=== PATIENT | female | born 1960 | race Caucasian/White ===

== ENCOUNTER → 2016-09-24 | Outpatient (CLI) | payer BC ==
[~2016-09-24] MED LIST: ALEVE 220MG220 MG PO
== END ==
LOC: MC.RAD 16:35
DX: Z12.31 Encounter for screening mammogram for malignant neoplasm of breast (principal)

== ENCOUNTER → 2017-03-18 | Outpatient (REF) | LOC: WSOH 08:15 | DX: Z02.89 Encounter for other administrative examinations (principal) ==

== ENCOUNTER 2018-07-17 07:05 | Day surgery (SDC) | payer BC ==
[~2018-07-17] VITALS: Ht 165.1 cm; Wt 57.8 kg
[2018-07-17 07:25] VITALS: BP 108/80; PULSE 75; TEMP 97.6
[2018-07-17] MEDS ORDERED: TEMOVATE0.052 TOP (07:25)
[2018-07-17 08:23] VITALS: BP 108/80; PULSE 63; TEMP 98.2
[2018-07-17 08:40] VITALS: BP 106/72; PULSE 61
[2018-07-17 08:55] VITALS: BP 105/59; PULSE 58
== END 2018-07-17 09:05 | disposition home or self-care (01) ==
LOC: SDCO 07:05
DX: Z12.11 Encounter for screening for malignant neoplasm of colon (principal); Z83.71 Family history of colonic polyps; Z85.038 Personal history of other malignant neoplasm of large intestine; Z80.0 Family history of malignant neoplasm of digestive organs; Z90.710 Acquired absence of both cervix and uterus
CPT/HCPCS: J2250; J3010; J7030

== ENCOUNTER → 2018-12-01 | Outpatient (CLI) | payer BC ==
[~2018-12-01] MED LIST changes: +TEMOVATE0.052 TOP
== END ==
LOC: MC.RAD 07:06
DX: Z12.31 Encounter for screening mammogram for malignant neoplasm of breast (principal)

== ENCOUNTER → 2020-01-13 | Outpatient (CLI) | payer BC | LOC: MC.RAD 12-07 08:30 | DX: Z12.31 Encounter for screening mammogram for malignant neoplasm of breast (principal) ==

== ENCOUNTER 2021-02-18 00:26 | Emergency (ER) | payer BC ==
[~2021-02-18] VITALS: Ht 165.1 cm; Wt 60.0 kg
[2021-02-18 00:34] VITALS: TEMP 98.5
[2021-02-18 01:03] LABS: COLLECTION METHOD CLEAN CATCH
[2021-02-18 01:09] LABS: BUDDING YEAST Present /hpf; PH 6 (5-8); URINE APPEARANCE Turbid; URINE BACTERIA None Seen /hpf; URINE BILIRUBIN Negative (NEGATIVE); URINE BLOOD 3+ (NEGATIVE); URINE COLOR Yellow; URINE GLUCOSE Negative (NEGATIVE); URINE KETONE Negative (NEGATIVE); URINE LEUKOCYTE ESTERASE 2+ (NEGATIVE); URINE NITRATE Negative (NEGATIVE); URINE PROTEIN(semi-quant) 2+ (NEGATIVE); URINE RBC >50 /hpf; URINE UROBILINOGEN Negative (NEGATIVE)
[2021-02-18] MEDS ORDERED: PYRIDIUM200 M1 PO ×3 (01:36→01:45)
[2021-02-18] MEDS ORDERED: DIFLUCAN200 MG PO ×3 (01:36→01:45)
[2021-02-18] MEDS ORDERED: CEFTIN500 MG PO ×3 (01:36→01:45)
[2021-02-18 01:40] VITALS: BP 120/63; PULSE 77
== END 2021-02-18 01:40 | disposition home or self-care (01) ==
LOC: COL.ER 00:26
PROVIDERS: Emergency Medicine
DX: N30.90 Cystitis, unspecified without hematuria (principal); Z90.710 Acquired absence of both cervix and uterus

== ENCOUNTER → 2021-04-11 | Outpatient (REF) ==
[~2021-04-11] MED LIST changes: +CEFTIN500 MG PO; +DIFLUCAN200 MG PO; +PYRIDIUM200 M1 PO
== END ==
LOC: COL.LAB 10:40
DX: Z20.822 Contact with and (suspected) exposure to COVID-19 (principal)

== ENCOUNTER → 2021-10-02 | Outpatient (CLI) | payer BC | LOC: MC.RAD 08:50 | DX: Z12.31 Encounter for screening mammogram for malignant neoplasm of breast (principal) ==

== ENCOUNTER 2023-09-26 08:43 | Day surgery (SDC) | payer BC ==
[~2023-09-26] VITALS: Ht 162.6 cm; Wt 60.4 kg
[~2023-09-26 08:43] MED LIST changes: +LR 1,000 ML IV SCH; +Ondansetron 4 MG/2 ML VIAL IV PRN
[2023-09-26] MEDS ORDERED: ARMOUR THYROID15 MG PO (09:25)
[2023-09-26] MEDS ORDERED: VITAMIN D3400 I1 PO (09:26)
[2023-09-26] MEDS ORDERED: MULTIPLE VITAMI1 CAP PO (09:26)
[2023-09-26] MEDS ORDERED: Glycopyrrolate 0.2 MG/ML 1 ML VIAL ONE (09:42)
[2023-09-26] MEDS ORDERED: Lidocaine PF 2% (20 MG/ML) 5 ML VIAL ONE (09:42)
[2023-09-26 09:45] VITALS: BP 110/77; PULSE 75; TEMP 98.3
[2023-09-26 10:18] VITALS: BP 82/57; PULSE 93; TEMP 96.6
[2023-09-26 10:30] VITALS: BP 94/62; PULSE 79
[2023-09-26 10:45] VITALS: BP 111/56; PULSE 75
--- NOTE | 2023-09-26 11:20 | NUR ---
1018- PATIENT RETURNS TO [facility] [place] [facility] VIA CART. PT AWAKE AND ALERT. RESPIRATIONS UNLABORED. AMBULATED TO RECLINER CHAIR WITH 2:1 SBA. PT DENIES NAUSEA OR ABDOMINAL PAIN. HOOKED UP TO MONITOR AND VS OBTAINED. CALL LIGHT AT SIDE AND PRESENT. 1026- PATIENT TOLERATING COFFEE AND MUFFIN WITHOUT NAUSEA OR ABD PAIN. 1037- D/C INSTRUCTIONS REVIEWED WITH PATIENT. PT VERBALIZED UNDERSTANDING AND A COPY OF INSTRUCTIONS PROVIDED IN D/C FOLDER. 1050- PATIENT DRESSES SELF. 1108- DR. DUNLAP IN ROOM SPEAKING WITH PATIENT. 1115- PATIENT DISCHARGED FROM UNIT VIA W/C TO A PERSONAL VEHICLE. PT LEFT HOSPITAL IN STABLE CONDITION.
== END 2023-09-26 11:15 | disposition home or self-care (01) ==
LOC: SDCO 08:43
DX: Z12.11 Encounter for screening for malignant neoplasm of colon (principal); Z80.0 Family history of malignant neoplasm of digestive organs; Z83.719 Family history of colon polyps, unspecified
CPT/HCPCS: J2704; J7120